=== PATIENT | male | born 1980 | race Hispanic/Latino ===

== ENCOUNTER 2017-12-14 09:23 | Emergency (ER) | payer OTHER ==
[2017-12-14 09:49] LABS: BASOPHILS % (AUTO) 0.8 % (0.0-5.0); EOSINOPHILS % (AUTO) 1.2 % (0.0-8.0); HEMATOCRIT 45.3 % (42-54); LYMPHOCYTES % (AUTO) 24.4 % (21.0-51.0); MEAN CORPUSCULAR VOLUME 82.4 fL (79-99); MONOCYTES % (AUTO) 5.8 % (3.0-13.0); NEUTROPHILS % (AUTO) 67.8 % (40.0-77.0); PLATELET COUNT (AUTO) 269 K/uL (130-400); RED CELL DISTRIBUTION WIDTH 14.6 % (11.0-15.5); WHITE BLOOD COUNT (AUTO) 9.2 K/uL (4.8-10.8)
[2017-12-14 10:05] LABS: AMPHET/METH SCREEN,URINE NEGATIVE (NEGATIVE); BARBITURATE SCREEN, URINE NEGATIVE (NEGATIVE); BENZODIAZEPINES SCREEN,URINE NEGATIVE (NEGATIVE); CANNABINOID SCREEN,URINE POSITIVE (NEGATIVE); COCAINE SCREEN,URINE NEGATIVE (NEGATIVE); OPIATE SCREEN,URINE NEGATIVE (NEGATIVE); PHENCYCLIDINE SCREEN,URINE NEGATIVE (NEGATIVE)
[2017-12-14 10:06] LABS: APPEARANCE,URINE Clear (CLEAR); BILIRUBIN,URINE Negative (NEGATIVE); COLOR,URINE Yellow (YELLOW); GLUCOSE, URINE (UA) Negative (NEGATIVE); KETONES,URINE Negative (NEGATIVE); LEUKOCYTE ESTERASE ,URINE Negative (NEGATIVE); NITRATE,URINE Negative (NEGATIVE); OCCULT BLOOD,URINE Negative (NEGATIVE); PH,URINE 5.5 (5.0-8.0); PROTEIN,URINE Negative (NEGATIVE); UROBILINOGEN,URINE 0.2 mg/dL (0.2-1.0)
[2017-12-14 10:18] LABS: CREATININE 0.9 mg/dL (0.5-1.5); POTASSIUM 3.7 mmol/L (3.5-5.1)
[2017-12-14 10:22] LABS: BILIRUBIN,TOTAL 0.5 mg/dL (0.2-1.0); TOTAL PROTEIN, SERUM 8.7 g/dL (6.0-8.3)
== END 2017-12-14 11:23 | disposition home or self-care (01) ==
LOC: EDH 09:23
DX: R20.2 Paresthesia of skin (principal); E78.5 Hyperlipidemia, unspecified; I10 Essential (primary) hypertension
CPT/HCPCS: 36415; 80053; 80305; 81003; 82550; 83690; 85025

== ENCOUNTER 2018-07-20 19:55 | Emergency (ER) | payer OTHER ==
[2018-07-20] MEDS ORDERED: ONDANSETRON HCL 4 MG/2 ML VIAL ONE (21:00)
[2018-07-20] MEDS ORDERED: SODIUM CHLORIDE 0.9% 1000ML 1,000 ML IV ONE (21:00)
[2018-07-20] MEDS ORDERED: KETOROLAC TROMETHAMINE 30MG/ML ONE (21:01)
[2018-07-20 21:08] LABS: BASOPHILS % (AUTO) 0.9 % (0.0-5.0); EOSINOPHILS % (AUTO) 0.5 % (0.0-8.0); LYMPHOCYTES % (AUTO) 16.1 % (21.0-51.0); MEAN CORPUSCULAR HGB CONC 33.6 g/dL (32.0-36.0); MEAN CORPUSCULAR VOLUME 83.3 fL (79-99); MONOCYTES % (AUTO) 8.9 % (3.0-13.0); NEUTROPHILS % (AUTO) 73.6 % (40.0-77.0); NUCLEATED RED BLOOD CELLS 0.1 % (0.0-0.19); PLATELET COUNT (AUTO) 315 K/uL (130-400); RED BLOOD CELL COUNT(AUTO) 5.64 MIL/uL (4.50-6.20); RED CELL DISTRIBUTION WIDTH 14.8 % (11.0-15.5); WHITE BLOOD COUNT (AUTO) 15.4 K/uL (4.8-10.8)
[2018-07-20 21:14] LABS: APPEARANCE,URINE Clear (CLEAR); BILIRUBIN,URINE Negative (NEGATIVE); COLOR,URINE Yellow (YELLOW); GLUCOSE, URINE (UA) Negative (NEGATIVE); KETONES,URINE Trace mg/dL (NEGATIVE); LEUKOCYTE ESTERASE ,URINE Negative (NEGATIVE); NITRATE,URINE Negative (NEGATIVE); OCCULT BLOOD,URINE Negative (NEGATIVE); PROTEIN,URINE POS 2+ (NEGATIVE); UROBILINOGEN,URINE 0.2 mg/dL (0.2-1.0)
[2018-07-20 21:19] LABS: CREATININE 1.1 mg/dL (0.5-1.5); POTASSIUM 4.1 mmol/L (3.5-5.1)
== END 2018-07-20 21:57 | disposition home or self-care (01) ==
LOC: EDH 19:55
DX: N20.0 Calculus of kidney (principal); E78.5 Hyperlipidemia, unspecified; I10 Essential (primary) hypertension; Z72.0 Tobacco use
CPT/HCPCS: 36415; 74176; 80048; 81003; 85025; 96374; 96375; 99285; J1885; J2405; J7030

== ENCOUNTER 2019-06-29 17:02 | Inpatient (IN) | payer SELFPAY ==
[~2019-06-29] VITALS: Ht 175.3 cm; Wt 101.6 kg
[2019-06-29 17:37] LABS: APPEARANCE,URINE Clear (CLEAR); BILIRUBIN,URINE Negative (NEGATIVE); COLOR,URINE Yellow (YELLOW); GLUCOSE, URINE (UA) >=1000 mg/dL (NEGATIVE); KETONES,URINE Trace mg/dL (NEGATIVE); LEUKOCYTE ESTERASE ,URINE Negative (NEGATIVE); NITRATE,URINE Negative (NEGATIVE); OCCULT BLOOD,URINE Negative (NEGATIVE); PH,URINE 5.5 (5.0-8.0); PROTEIN,URINE POS 1+ mg/dL (NEGATIVE); UROBILINOGEN,URINE 0.2 mg/dL (0.2-1.0)
[2019-06-29 17:46] LABS: BACTERIA,URINE Few /HPF (None Seen); MUCUS,URINE Few LPF (None Seen); SQUAMOUS EPITHELIAL CELL,UR 0-2 /HPF (0-2)
[2019-06-29 18:01] LABS: BASOPHILS % (AUTO) 1.5 % (0.0-5.0); LYMPHOCYTES % (AUTO) 32.9 % (21.0-51.0); MEAN CORPUSCULAR HEMOGLOBIN 30.2 pg (27.0-33.0); MEAN CORPUSCULAR HGB CONC 36.3 g/dL (32.0-36.0); MEAN CORPUSCULAR VOLUME 83.2 fL (79-99); MONOCYTES % (AUTO) 6.6 % (3.0-13.0); NUCLEATED RED BLOOD CELLS 0.1 % (0.0-0.19); PLATELET COUNT (AUTO) 248 K/uL (130-400); RED BLOOD CELL COUNT(AUTO) 5.17 MIL/uL (4.50-6.20); RED CELL DISTRIBUTION WIDTH 14.7 % (11.0-15.5); WHITE BLOOD COUNT (AUTO) 6.5 K/uL (4.8-10.8)
[2019-06-29] MEDS ORDERED: SODIUM CHLORIDE 0.9% 1000ML 1,000 ML IV ONE (18:12)
[2019-06-29 18:59] LABS: LIPASE 134 U/L (114-286)
[2019-06-29 19:08] LABS: CREATINE KINASE, TOTAL 411 U/L (21-232)
[2019-06-29 19:15] LABS: ALBUMIN 2.8 g/dL (3.5-5.0); BILIRUBIN,TOTAL 1.1 mg/dL (0.2-1.0); POTASSIUM 5.9 mmol/L (3.5-5.1)
[2019-06-29] MEDS ORDERED: INSULIN HUMULIN R 100 UNIT/ML 3ML ONE (19:27)
[2019-06-29] MEDS ORDERED: CALCIUM GLUCONATE 1 GM/10 ML VIAL IV ONE (19:28)
[2019-06-29] MEDS ORDERED: SODIUM BICARB 50MEQ 50ML VIAL ONE (19:28)
[2019-06-29] MEDS ORDERED: DEXTROSE 50%-WATER 50 ML DISP.SYRIN IV ONE (19:29)
[2019-06-29 19:55] LABS: CREATININE 0.6 mg/dL (0.5-1.5); TOTAL PROTEIN, SERUM 5.4 g/dL (6.0-8.3)
[2019-06-29 20:03] LABS: ABG OXYGEN SATURATION 22.1 % (95.0-99.0); BASE EXCESS,VENOUS BLOOD GAS -0.2 (-2.0-3.0); HCO3,VENOUS BLOOD GAS 26.1 (21.0-28.0); PCO2,VENOUS BLOOD GAS 49 (35-48); PH,VENOUS BLOOD GAS 7.348 (7.350-7.450)
[2019-06-29 21:08] LABS: INR 1.02 (0.85-1.15); PARTIAL THROMBOPLASTIN TIME 36.1 SEC (26.3-35.5)
[2019-06-29] MEDS: SODIUM CHLORIDE 0.9% 1000ML 1,000 ML IV SCH ×2 (21:46→23:48)
[2019-06-29] MEDS ORDERED: ONDANSETRON HCL 4 MG/2 ML VIAL IV PRN (22:00)
[2019-06-29 23:02] LABS: POTASSIUM 3.6 mmol/L (3.5-5.1)
[2019-06-29 23:27] LABS: AMPHET/METH SCREEN,URINE NEGATIVE (NEGATIVE); BARBITURATE SCREEN, URINE NEGATIVE (NEGATIVE); BENZODIAZEPINES SCREEN,URINE NEGATIVE (NEGATIVE); CANNABINOID SCREEN,URINE NEGATIVE (NEGATIVE); COCAINE SCREEN,URINE NEGATIVE (NEGATIVE); OPIATE SCREEN,URINE NEGATIVE (NEGATIVE); PHENCYCLIDINE SCREEN,URINE NEGATIVE (NEGATIVE)
[2019-06-29 23:40] VITALS: BP 144/115
--- NOTE | 2019-06-29 23:45 | NUR ---
ADMIT PT ADMITTED TO ROOM 420, AAOX3. DENIES ANY PAINS NOR DISCOMFORT AT THIS TIME. CLAIMS OF FEELING A LOT BETTER. NO WEAKNESS, BLURRY VISION NOR FEELING OF PASSING OUT VERBALIZED. ADMISSION CARE DONE. V/S MONITORED. BP ELEVATED AT 144/115, HR=91. ADMISSION CARE DONE. PT PROVIDED WITH SANDWICH TO EAT PT VERBALIZES THAT HE HAS NOT EATEN AND IS HUNGRY. STARTED ON IVF OF NS REGULATED AT 125CC/HR. HYDRALAZINE IV ADMINISTERED FOR ELEVATED BP. ADMISSION DATA BASE COMPLETED. ORIENTED TO ROOM AND UNIT. IN FOR MORE CARE AND MANAGEMENT. Addendum: 06/30/19 at 0027 by NIGEL KEITA RN RN Amended: Links added.
[2019-06-29] MEDS: HYDRALAZINE HCL 20 MG/ML VIAL IV PRN (23:48)
[2019-06-29] MEDS ORDERED: GEMF600T5 PO (23:55)
[2019-06-29] MEDS ORDERED: ATEN50TA PO (23:55)
[2019-06-30 01:10] VITALS: BP 155/100
--- NOTE | 2019-06-30 01:10 | NUR ---
RE-CHECK PT'S BP [id number]=173/100, HR=99. DENIES ANY DISCOMFORT AT THIS TIME. KEPT RESTED AND ENCOURAGED TO REST. FAMILY AT BEDSIDE. WILL MONITOR PT. CALL LIGHT WITHIN REACH.
[2019-06-30 03:46] VITALS: BP 134/108
[2019-06-30] MEDS: SODIUM CHLORIDE 0.9% 1000ML 1,000 ML IV SCH ×2 (05:19→16:23)
[2019-06-30 05:29] LABS: BASOPHILS % (AUTO) 1.9 % (0.0-5.0); EOSINOPHILS % (AUTO) 3.6 % (0.0-8.0); HEMATOCRIT 39.1 % (42-54); LYMPHOCYTES % (AUTO) 35.9 % (21.0-51.0); MEAN CORPUSCULAR HEMOGLOBIN 29.2 pg (27.0-33.0); MEAN CORPUSCULAR HGB CONC 35.6 g/dL (32.0-36.0); MONOCYTES % (AUTO) 8.3 % (3.0-13.0); NEUTROPHILS % (AUTO) 50.3 % (40.0-77.0); NUCLEATED RED BLOOD CELLS 0.1 % (0.0-0.19); PLATELET COUNT (AUTO) 194 K/uL (130-400); RED BLOOD CELL COUNT(AUTO) 4.78 MIL/uL (4.50-6.20); RED CELL DISTRIBUTION WIDTH 14.5 % (11.0-15.5); WHITE BLOOD COUNT (AUTO) 6.5 K/uL (4.8-10.8)
[2019-06-30 05:32] LABS: CREATININE 0.7 mg/dL (0.5-1.5); POTASSIUM 3.7 mmol/L (3.5-5.1)
--- NOTE | 2019-06-30 05:39 | NUR ---
ROUNDS PT RESTING WELL, NO CONCERNS VERBALIZED. NO DISTRESS NOTED. KEPT COMFORTABLE. FOR MORE CARE.
[2019-06-30] MEDS: INSULIN HUMULIN R 100 UNIT/ML 3ML SQ SCH ×4 (06:20→20:26)
[2019-06-30 08:00] VITALS: BP 163/110
[2019-06-30] MEDS: FAMOTIDINE 20MG TAB 20 MG TAB PO SCH ×2 (08:07→20:20)
[2019-06-30] MEDS: HYDRALAZINE HCL 20 MG/ML VIAL IV PRN (08:07)
[2019-06-30] MEDS: GEMFIBROZIL 600 MG TABLET PO SCH ×2 (08:07→20:21)
[2019-06-30] MEDS: ENOXAPARIN SODIUM 40 MG/0.4 ML SYRINGE SQ SCH (08:08)
[2019-06-30] MEDS: ACETAMINOPHEN 325 MG TAB PO PRN ×3 (10:05→22:47)
[2019-06-30] MEDS ORDERED: LISINOPRIL 20 MG TABLET PO SCH (11:00)
[2019-06-30] MEDS: METFORMIN HCL 500 MG TABLET PO SCH ×2 (11:20→16:23)
[2019-06-30] MEDS: HYDROCHLOROTHIAZIDE 25 MG TABLET PO SCH (11:21)
[2019-06-30 11:41] VITALS: BP 149/116
--- NOTE | 2019-06-30 15:12 | NUR ---
UDS + for THC SW met with the pt who admits to THC abuse, but states "I am no addict". Pt refused resources offered.
--- NOTE | 2019-06-30 15:17 | NUR ---
RD NOTIFICATION DX: HYPERGLYCEMIA. HX: HTN, HYPERLIPIDEMIA. SKIN INTACT, NO EDEMA NOTED. LBM: 06/30. PO INTAKE 100% AND HAS GREAT APPETITE. PT IS A NEW DIABETIC, NEVER DX IN THE PAST. PT EATS WELL AT HOME. HE IS NOT FAMILIAR WITH A DIABETIC DIET. RD PROVIDED DIABETES AND HEART HEALTHY DIET AND NUTRITION EDUCATION. PT ASKED QUESTIONS, RD ANSWERED AND PT VERBALIZED UNDERSTANDING. MATERIALS PROVIDED. RD RECOMMENDS CONTINUE CURRENT DIET. ADD HEART HEALTHY TO DIET ORDER. RD PROVIDED DM AND HEART HEALTHY DIET AND NUTRITION EDUCATION. RD WILL FOLLOW UP NEEDED. Addendum: 06/30/19 at [address] RD Amended: Links added.
--- NOTE | 2019-06-30 15:19 | NUR ---
DIET EDUCATION PT EATS WELL AT HOME. HE IS NOT FAMILIAR WITH A DIABETIC DIET. ALFREDO PROVIDED DIABETES AND HEART HEALTHY DIET AND NUTRITION EDUCATION. PT ASKED QUESTIONS, RD ANSWERED AND PT VERBALIZED UNDERSTANDING. MATERIALS PROVIDED. Addendum: 06/30/19 at [address] RD Amended: Links added.
[2019-06-30 16:00] VITALS: BP 150/97
[2019-06-30] MEDS: GLIPIZIDE 5 MG TABLET PO SCH (16:23)
[2019-06-30] MEDS ORDERED: GLIPIZIDE 5 MG TABLET PO SCH (16:30)
[2019-06-30 20:00] VITALS: BP 159/99
[2019-06-30] MEDS: NIACIN 250 MG TABLET.SA PO SCH (20:21)
[2019-06-30] MEDS: ATENOLOL 50 MG TABLET PO SCH (20:21)
[2019-06-30] MEDS ORDERED: ATORVASTATIN CALCIUM 40 MG TABLET PO SCH (21:00)
[2019-07-01] VITALS (7 sets, daily range): BP systolic 125–147; BP diastolic 88–98
[2019-07-01 06:05] LABS: MEAN CORPUSCULAR HEMOGLOBIN 28.5 pg (27.0-33.0); MEAN CORPUSCULAR HGB CONC 34.3 g/dL (32.0-36.0); MEAN CORPUSCULAR VOLUME 83.1 fL (79-99); NUCLEATED RED BLOOD CELLS 0.1 % (0.0-0.19); PLATELET COUNT (AUTO) 207 K/uL (130-400); RED BLOOD CELL COUNT(AUTO) 5.06 MIL/uL (4.50-6.20); RED CELL DISTRIBUTION WIDTH 14.4 % (11.0-15.5); WHITE BLOOD COUNT (AUTO) 9.1 K/uL (4.8-10.8)
[2019-07-01 06:31] LABS: CREATININE 0.9 mg/dL (0.5-1.5); POTASSIUM 3.4 mmol/L (3.5-5.1)
[2019-07-01] MEDS: GLIPIZIDE 5 MG TABLET PO SCH ×2 (06:31→17:48)
[2019-07-01] MEDS: SODIUM CHLORIDE 0.9% 1000ML 1,000 ML IV SCH ×2 (06:32→17:51)
[2019-07-01] MEDS: INSULIN HUMULIN R 100 UNIT/ML 3ML SQ SCH ×4 (06:36→20:50)
[2019-07-01] MEDS: HYDROCHLOROTHIAZIDE 25 MG TABLET PO SCH ×2 (08:32→11:00)
[2019-07-01] MEDS: METFORMIN HCL 500 MG TABLET PO SCH ×3 (08:32→16:30)
[2019-07-01] MEDS: LISINOPRIL 20 MG TABLET PO SCH (08:33)
[2019-07-01] MEDS: ENOXAPARIN SODIUM 40 MG/0.4 ML SYRINGE SQ SCH (08:34)
[2019-07-01] MEDS: GEMFIBROZIL 600 MG TABLET PO SCH ×2 (08:34→20:38)
[2019-07-01] MEDS: FAMOTIDINE 20MG TAB 20 MG TAB PO SCH ×2 (08:34→20:38)
--- NOTE | 2019-07-01 17:30 | NUR ---
INITIAL MET W PATIENT - AND MULTIPLE FMAILY MEMBERS IN THE ROOM, PT AAOX3, CURRENTLY UNEMPLOYED, NEW DX OF DM, NO OTHER FAMILY MEMBERS HAVE THIS INDP OF ADLS, NO DME, DRIVES, YOUNG. [facility] [employer]; ALSO SPOEK TO RE COST OF LANTU VS 70/30 INSULIN AND IF THESE IS A BENEFIIT TO SWITCHING- HUGE COST DIFFERENCE, MD WILL REVIEW TO SEE IF 70 /30 CAN BE STARTED HERE AT THE [facility] Addendum: 07/01/19 at 2120 by CARISA OSBORNE RN Amended: Links added.
[2019-07-01] MEDS: NIACIN 250 MG TABLET.SA PO SCH (20:38)
[2019-07-01] MEDS: ATENOLOL 50 MG TABLET PO SCH (20:39)
[2019-07-01] MEDS: ACETAMINOPHEN 325 MG TAB PO PRN (20:51)
[2019-07-01] MEDS ORDERED: INSULIN GLARGINE 100 UNITS/ML 10 ML VIAL SQ SCH (21:00)
[2019-07-02] MEDS: ACETAMINOPHEN 325 MG TAB PO PRN ×3 (03:01→16:29)
[2019-07-02 03:50] VITALS: BP 140/92
[2019-07-02 03:53] LABS: HEMATOCRIT 42.3 % (42-54); MEAN CORPUSCULAR HEMOGLOBIN 28.5 pg (27.0-33.0); MEAN CORPUSCULAR HGB CONC 34.7 g/dL (32.0-36.0); MEAN CORPUSCULAR VOLUME 82.1 fL (79-99); PLATELET COUNT (AUTO) 220 K/uL (130-400); RED BLOOD CELL COUNT(AUTO) 5.15 MIL/uL (4.50-6.20); RED CELL DISTRIBUTION WIDTH 14.4 % (11.0-15.5); WHITE BLOOD COUNT (AUTO) 6.6 K/uL (4.8-10.8)
[2019-07-02 04:07] LABS: POTASSIUM 3.6 mmol/L (3.5-5.1)
[2019-07-02 04:31] LABS: CREATININE 0.9 mg/dL (0.5-1.5); MAGNESIUM 1.4 mg/dL (1.80-2.40); PHOSPHORUS 3.4 mg/dL (2.5-4.9)
[2019-07-02] MEDS: GLIPIZIDE 5 MG TABLET PO SCH (06:41)
[2019-07-02] MEDS: METFORMIN HCL 500 MG TABLET PO SCH ×2 (06:41→16:28)
[2019-07-02] MEDS: INSULIN HUMULIN R 100 UNIT/ML 3ML SQ SCH ×4 (06:47→20:46)
[2019-07-02 07:45] VITALS: BP 125/76
[2019-07-02] MEDS: LISINOPRIL 20 MG TABLET PO SCH (09:21)
[2019-07-02] MEDS: GEMFIBROZIL 600 MG TABLET PO SCH ×2 (09:21→20:43)
[2019-07-02] MEDS: METOPROLOL TARTRATE 25 MG TAB PO SCH ×2 (09:21→20:43)
[2019-07-02] MEDS: HYDROCHLOROTHIAZIDE 25 MG TABLET PO SCH ×2 (09:22→11:00)
[2019-07-02] MEDS: FAMOTIDINE 20MG TAB 20 MG TAB PO SCH ×2 (09:23→20:43)
[2019-07-02] MEDS: ENOXAPARIN SODIUM 40 MG/0.4 ML SYRINGE SQ SCH (09:24)
[2019-07-02] MEDS: INSULIN HUMULIN 70/30 100 UNIT/ML 3ML SQ SCH ×2 (09:29→16:33)
[2019-07-02 11:00] VITALS: BP 133/93
[2019-07-02] MEDS: SODIUM CHLORIDE 0.9% 1000ML 1,000 ML IV SCH (14:35)
[2019-07-02 16:00] VITALS: BP 127/93
[2019-07-02 20:00] VITALS: BP 127/96
[2019-07-02] MEDS: NIACIN 250 MG TABLET.SA PO SCH (20:43)
[2019-07-03] VITALS: BP 127/92
[2019-07-03 04:00] VITALS: BP 128/70
[2019-07-03 05:04] LABS: HEMATOCRIT 41.7 % (42-54); MEAN CORPUSCULAR HEMOGLOBIN 28.2 pg (27.0-33.0); MEAN CORPUSCULAR HGB CONC 34.1 g/dL (32.0-36.0); MEAN CORPUSCULAR VOLUME 82.8 fL (79-99); NUCLEATED RED BLOOD CELLS 0.1 % (0.0-0.19); PLATELET COUNT (AUTO) 198 K/uL (130-400); RED BLOOD CELL COUNT(AUTO) 5.03 MIL/uL (4.50-6.20); RED CELL DISTRIBUTION WIDTH 14.3 % (11.0-15.5)
[2019-07-03 05:20] LABS: CREATININE 0.7 mg/dL (0.5-1.5); POTASSIUM 3.3 mmol/L (3.5-5.1)
[2019-07-03] MEDS: METFORMIN HCL 500 MG TABLET PO SCH ×2 (06:08→16:05)
[2019-07-03] MEDS: INSULIN HUMULIN 70/30 100 UNIT/ML 3ML SQ SCH ×2 (06:09→16:10)
[2019-07-03] MEDS: INSULIN HUMULIN R 100 UNIT/ML 3ML SQ SCH ×2 (07:29→12:45)
--- NOTE | 2019-07-03 07:29 | NUR ---
insulin self injection educatation initiated; pt ilya up insulin and injected self in abdoman; he stated back rationale for use and what to watch for
[2019-07-03 08:00] VITALS: BP 132/85
[2019-07-03] MEDS: FAMOTIDINE 20MG TAB 20 MG TAB PO SCH (10:31)
[2019-07-03] MEDS: GEMFIBROZIL 600 MG TABLET PO SCH (10:31)
[2019-07-03] MEDS: HYDROCHLOROTHIAZIDE 25 MG TABLET PO SCH ×2 (10:31→11:00)
[2019-07-03] MEDS: METOPROLOL TARTRATE 25 MG TAB PO SCH (10:31)
[2019-07-03] MEDS: LISINOPRIL 20 MG TABLET PO SCH (10:33)
[2019-07-03] MEDS: ENOXAPARIN SODIUM 40 MG/0.4 ML SYRINGE SQ SCH (10:34)
[2019-07-03 11:00] VITALS: BP 137/86
--- NOTE | 2019-07-03 12:59 | NUR ---
Diabetes diet education reeducation: Nutrition consult for diabetic education received. Pt educated on 06/30/19. However pt with multiple questions during diet education. Provided pt with printed materials. Pt encouraged to attend diabetic classes in the community to further diet knowledge. Pt verbalize understanding. Addendum: 07/03/19 at [address] RD Amended: Links added.
[2019-07-03] MEDS ORDERED: NIAC250T2 PO (13:27)
[2019-07-03] MEDS ORDERED: HUM10VIA SQ (13:27)
[2019-07-03] MEDS ORDERED: LISI-613 PO (13:27)
[2019-07-03] MEDS ORDERED: HYDR25TA PO (13:27)
[2019-07-03] MEDS ORDERED: METF-444 PO (13:27)
[2019-07-03] MEDS ORDERED: METO25 PO (13:27)
--- NOTE | 2019-07-03 16:11 | NUR ---
pt and family stated understanding of all d/c instructions on after care for newly dx diabetes; i have taught how to self inject which pt is doing satisfactorily, iv access removed, verified electronic perscription went through, cw seen for medication coupons.
== END 2019-07-03 17:26 | disposition home or self-care (01) | DRG 638 ==
LOC: EDH 17:02 → OBSVTOIN 17:03 → EDHIP 17:03 → 4CH 23:09
PROVIDERS: ADMIT Internal Medicine; ATTEND Internal Medicine
DX: E11.00 Type 2 diabetes mellitus with hyperosmolarity without nonketotic hyperglycemic-hyperosmolar coma (NKHHC) (principal); E87.1 Hypo-osmolality and hyponatremia; E87.2 Acidosis; E86.1 Hypovolemia; E78.1 Pure hyperglyceridemia; E78.5 Hyperlipidemia, unspecified; E87.5 Hyperkalemia; I10 Essential (primary) hypertension
CPT/HCPCS: 36415; 36600; 80048; 80053; 80061; 80305; 81001; 82010; 82550; 82803; 82947; 82948; 83036; 83690; 83735; 84100; 84132; 84484; 85025; 85027; 85610; 85730; 93005; G0378; J0360; J0610; J1650; J1815; J3490; J7030; J7070